=== PATIENT | female | born 1945 | race African-American/Black ===

== ENCOUNTER → 2017-01-10 | Outpatient (CLI) | payer MEDICARE ==
[~2017-01-10] MED LIST: AMBIEN10 MG PO; ASPIRIN EC81 M1 PO; ASTEPRO205.5 MCG/ INH; ATORVASTATIN CA10 MG PO; AZELASTINE INH; DETROL PO; DONEPEZIL HCL10 MG PO; DULOXETINE HCL60 MG PO; ESCITALOPRAM OX10 MG PO; FERROUS SULFATE PO; FLUNISOLIDE25 ML; HUMALOG100 UNIT/1 SUBQ; HUMALOG100 UNIT/2 SUBQ; IMDUR-ER30 M1 PO; JANUMET 50-1,01 EACH PO; JANUMET XR 1001 EACH PO; KCL PO; LANTUS SOL100 UNIT/1 SUBQ; LEVSIN0.125 M2 PO; MORPHINE SULFAT15 M3 PO; MUCUS RELIEF600 M1 PO; MULTIVITAMINS1 EAC3 PO; NIFEDICAL PO; NYSTATIN-TRIAMC15 G1 EXT; OMEPRAZOLE40 M1 PO; OXYGEN; PROAIR HFA8.5 GM INH; SINGULAIR PO; VITAMIN D PO; VITAMIN D350000 UNIT PO; WELLBUTRIN XL150 M2 PO; XALATAN OU; XYZAL5 MG PO
[2017-01-10 15:23] LABS: CALCIUM SERUM 9.2 mg/dL (8.4-10.2); CREATININE SERUM 0.6 mg/dL (0.6-1.4); GLOM FILT RATE Estimated 104.8 mL/min (>60); POTASSIUM 3.6 mmol/L (3.5-5.1)
== END | disposition home or self-care (01) ==
LOC: CAMB 11:00
PROVIDERS: Surgery
DX: Z01.812 Encounter for preprocedural laboratory examination (principal); R22.2 Localized swelling, mass and lump, trunk
CPT/HCPCS: 36415; 80048

== ENCOUNTER → 2017-02-28 | Day surgery (SDC) | payer MEDICARE ==
--- NOTE | ~2017-02-28 | OR ---
Unit #: [id number] #: [id number] Patient: BIJU BOSCH [id number] [address] [place], [place] [address] [id number] MR#: [id number] NAME: BIJU BOSCH ROOM: Date of Procedure: 02/28/2017 Admission Date: 02/28/2017 Surgeon: Zackery Byrd Jr., M.D. : 1945 Attending Physician: Zackery Byrd Jr., M.D. Primary Care Physician: Payal Livingston Aprn OPERATIVE REPORT INDICATIONS FOR PROCEDURE The patient is a 71-year-old obese black female, who recently presented to the office complaining of a nodular mass of the right buttock, which apparently had been excised previously, but now has recurred. The patient has had no drainage from it recently and she is brought in this time for excision of this. It is felt that may likely be a sebaceous cyst. PREOPERATIVE DIAGNOSIS Nodular mass of the right buttock, possible recurrent sebaceous cyst. POSTOPERATIVE DIAGNOSES Nodular mass of the right buttock, possible recurrent sebaceous cyst, also noting a large lipoma beneath the area. ANESTHESIA MAC anesthesia with 1% Marcaine with epinephrine. PROCEDURE PERFORMED Excision of nodular mass, right buttock. DESCRIPTION OF PROCEDURE The patient was positioned in the supine position. After being anesthetized in left lateral decubitus position, she was prepped and draped in routine fashion for excision of the nodular mass. It was marked in the preop holding room. The area was locally blocked with 1% Xylocaine with epinephrine. An elliptical incision was made around the area with being totally excised of the surrounding tissue. Upon incising into the subcutaneous tissue, there was a large lipomatous mass that basically popped out through the incision. This was removed with the Bovie cautery at its base and after it was removed, the entire specimen was sent to pathology. Hemostasis was achieved with Bovie cautery. The deeper tissue approximated with interrupted 3-0 Vicryl sutures. Subcutaneous tissue approximated with interrupted 3-0 Vicryl sutures. Skin edges approximated with stainless-steel skin clips and skin stapling device. Sterile dressings were applied externally. Estimated blood loss less than 50 mL. The patient received less than 1000 mL crystalloid solution during the procedure. Sponges and instruments counts were correct x3. No drains used. No complications. The patient was taken to the recovery room with stable vital signs in satisfactory condition. Dictated by... Zackery Byrd Jr., M.D. Unit #: [id number] #: [id number] Patient: BIJU BOSCH JITENDRA/mechelle TD: 02/28/2017 13:32 JOB #: [id number] OPERATIVE REPORT Page 1 of 1 X Zackery Byrd MD X PROCEDURE OPERATIVE NOTE
--- NOTE | ~2017-02-28 | EKG ---
PATIENT: BIJU BOSCH UNIT #: [id number] Ventricular Rate: 83 BPM Atrial Rate: 83 BPM P-R Interval: 132 ms QRS Duration: 90 ms Q-T Interval: 392 ms QTC Calculation(Bezet): 460 ms P [place]: 55 degrees Calculated R [place]: -61 degrees Calculated T [place]: 52 degrees Diagnosis Line: Normal sinus rhythm Diagnosis Line: Left anterior fascicular block Diagnosis Line: Abnormal ECG Diagnosis Line: No previous ECGs available Diagnosis Line: Confirmed by LAUREANO MCCAULEY MD ([id number]) on 03/01/2017 Diagnosis Line: 5:00:42 PM INTERPRETING MD: GARRICK CAVANAUGH
[2017-02-28 09:44] LABS: HEMOGLOBIN 12.3 gm/dL (12.0-16.0); MEAN CELL VOLUME 96.7 FL (83-96); MEAN CORPUSCULAR HEMOGLOBIN 30.6 PG (28-34); MEAN CORPUSCULAR HGB CONC 31.6 g/dL (30-36); RED BLOOD COUNT 4.03 X10e (3.90-5.30); RED CELL DISTRIBUTION WIDTH 13.9 % (11.0-15.5)
[2017-02-28 10:07] LABS: BUN/CREATININE RATIO 12.5; CALCIUM SERUM 9.2 mg/dL (8.4-10.2); CREATININE SERUM 0.8 mg/dL (0.6-1.4); GLOM FILT RATE Estimated 84.8 mL/min (>60); POTASSIUM 3.6 mmol/L (3.5-5.1)
== END | disposition home or self-care (01) ==
LOC: CSUR 09:08
PROVIDERS: Surgery
DX: D17.1 Benign lipomatous neoplasm of skin and subcutaneous tissue of trunk (principal); I11.9 Hypertensive heart disease without heart failure; I50.9 Heart failure, unspecified; E11.9 Type 2 diabetes mellitus without complications; J45.909 Unspecified asthma, uncomplicated; K21.9 Gastro-esophageal reflux disease without esophagitis; E78.5 Hyperlipidemia, unspecified; M19.90 Unspecified osteoarthritis, unspecified site; M81.0 Age-related osteoporosis without current pathological fracture; G47.30 Sleep apnea, unspecified; E66.9 Obesity, unspecified; Z68.31 Body mass index [BMI] 31.0-31.9, adult; Z87.442 Personal history of urinary calculi; Z87.891 Personal history of nicotine dependence; Z88.1 Allergy status to other antibiotic agents; Z88.8 Allergy status to other drugs, medicaments and biological substances; Z79.899 Other long term (current) drug therapy; Z90.49 Acquired absence of other specified parts of digestive tract; Z98.84 Bariatric surgery status; Z98.51 Tubal ligation status; Z98.890 Other specified postprocedural states
CPT/HCPCS: 80048; 82947; 85027; 88304; 93005; J2270; J3010